=== PATIENT | male | born 1935 | race Caucasian/White ===

== ENCOUNTER 2019-02-26 16:32 | Emergency (ER) | payer MEDICARE, BC ==
[~2019-02-26] VITALS: Ht 172.7 cm; Wt 84.4 kg
[2019-02-26] MEDS ORDERED: PRINIVIL20 M1 PO (16:50)
[2019-02-26] MEDS ORDERED: CALCIUM500 MG PO (16:51)
[2019-02-26] MEDS ORDERED: FISH OIL 1,0001 EAC9 PO (16:51)
[2019-02-26] MEDS ORDERED: MAGNESIUM250 M1 PO (16:51)
[2019-02-26] MEDS ORDERED: VITAMIN D32000 UNIT PO (16:51)
[2019-02-26] MEDS ORDERED: NORCO 5-325 TA1 EAC1 PO (17:15)
[2019-02-26 17:35] VITALS: BP 171/87
== END 2019-02-26 17:36 | disposition home or self-care (01) ==
LOC: M.ERS 16:32
DX: S46.211A Strain of muscle, fascia and tendon of other parts of biceps, right arm, initial encounter (principal); I10 Essential (primary) hypertension; X50.9XXA Other and unspecified overexertion or strenuous movements or postures, initial encounter; Y93.89 Activity, other specified; Y92.89 Other specified places as the place of occurrence of the external cause; Y99.8 Other external cause status